=== PATIENT | male | born 1960 | race Caucasian/White ===

== ENCOUNTER 2019-05-18 11:02 | Emergency (ER) | payer BC, OTHER ==
[2019-05-18 11:19] VITALS: BP 181/109; PULSE 101; TEMP 98; BMI 24.4
[2019-05-18] MEDS ORDERED: FLUORESCEIN NA 1 EA STRIP OS ONE (11:22)
[2019-05-18] MEDS ORDERED: TETRACAINE 0.5% OPHTH SOLN 2 ML BOTTLE OS ONE (11:23)
[2019-05-18] MEDS ORDERED: FLUORESCEIN NA 1 EA STRIP ONE (11:25)
[2019-05-18] MEDS ORDERED: TETRACAINE 0.5% OPHTH SOLN 2 ML BOTTLE ONE (11:25)
[2019-05-18] MEDS ORDERED: valACYclovir HCL 1000 MG TABLET PO ONE (11:46)
[2019-05-18] MEDS ORDERED: valACYclovir HCL 500 MG TABLET (FP) ONE (11:49)
--- NOTE | 2019-05-18 11:54 | PDOC ---
History of Present Illness - General Chief Complaint: Rash Stated Complaint: RASH Time Seen by Provider: 05/18/19 11:03 History Source: Patient Exam Limitations: No Limitations - History of Present Illness Initial Comments: 05/18/19 11:47 CHIEF COMPLAINT: Rash on left forehead for several days HISTORY OF PRESENT ILLNESS: 58-year-old man presents complaining of rash on the left side of his forehead, initially small blisters, now scabbing over. Also has some pain in his left ear. No fever or chills. No sore throat. Also would like to have his glands checked for any swollen glands. REVIEW OF SYSTEMS: No fever chills No headache Positive left forehead skin rash with skin sensitivity Positive left ear pain with radiation to the left side of the face No neck stiffness No other rash Past History - Past Medical History Allergies/Adverse Reactions: Allergies Allergy/AdvReac Type Severity Reaction Status Date / Time No Known Allergies Allergy Verified 05/18/19 11:05 Home Medications: Ambulatory Orders Celecoxib [Celebrex] 0 mg PO BID 11/21/14 Diazepam [Valium] 5 mg PO DAILY PRN 11/21/14 Hydroxychloroquine So4 [Plaquenil -] 200 mg PO DAILY 11/21/14 Tramadol HCl [Ultram] 50 mg PO BID 11/21/14 Aspirin [ASA -] 81 mg PO DAILY 05/18/19 Atorvastatin Ca [Lipitor] 20 mg PO HS 05/18/19 Lansoprazole [Prevacid -] 30 mg PO DAILY 05/18/19 Levocetirizine Dihydrochloride 5 mg PO DAILY 05/18/19 Montelukast Sodium [Singulair] 10 mg PO DAILY 05/18/19 Valacyclovir HCl [Valtrex -] 1,000 mg PO TID #21 tablet 05/18/19 Cardiac Disorders: Yes CVA: Yes (Internal carotid artery dissection, word finding difficulty) COPD: No Other medical history: STROKE, CAROTID DISSECTION, rheumatoid arthritis on Plaquenil - Surgical History Appendectomy: Yes GI Surgery: Yes (Epiploic appendagitis) - Immunization History Immunization Up to Date: Yes - Psycho Social/Smoking Cessation Hx Smoking History: Never smoked Have you smoked in the past 12 months: No Information on smoking cessation initiated: No Hx Alcohol Use: No (HX) Substance Use Type: None *Physical Exam - Vital Signs Last Vital Signs Temp Pulse Resp BP Pulse Ox 98 F 101 H 20 181/109 H 98 05/18/19 11:03 05/18/19 11:03 05/18/19 11:03 05/18/19 11:03 05/18/19 11:03 - Physical Exam Comments: 05/18/19 11:50 GENERAL: The patient is awake, alert, and fully oriented, in no acute distress. HEAD: Normal with no signs of trauma. Positive facial rash on the left forehead. See skin exam. EYES: Pupils equal, round and reactive to light, extraocular movements intact, sclera anicteric, conjunctiva clear. No eye pain, conjunctiva clear, corneal examination post tetracaine and fluorescein is normal with no abnormal uptake. EARS: The left auditory canal is normal. The tympanic membrane is normal. OROPHARYNX: There is no pharyngeal swelling, multiple tooth restorations, all appear normal. THROAT: No tonsillar swelling or erythema, no trismus. NECK: No adenopathy noted, no anterior or posterior cervical nodes. EXTREMITIES: Normal range of motion, no edema. NEUROLOGICAL: Normal speech, normal gait. Occasionally he is slow to find words , but generally fluent speech. (Old stroke with speech changes) PSYCH: Normal mood, normal affect. SKIN: The T1 branch of the trigeminal nerve on the left side has typical shingles lesions with scabbing and crusting. There is no involvement of the nose in any area. ED Treatment Course - Medications Given in the ED: ED Medications Discontinued Medications Generic Name Dose Route Start Last Admin Trade Name Freq PRN Reason Stop Dose Admin Fluorescein Sodium 1 ea 05/18/19 11:22 05/18/19 11:38 Fluorets - OS 05/18/19 11:23 1 ea ONCE ONE Administration Tetracaine HCl 1 drop 05/18/19 11:23 05/18/19 11:38 Pontocaine OS 05/18/19 11:24 1 drop ONCE ONE Administration Medical Decision Making - Medical Decision Making 05/18/19 11:55 58-year-old man on Plaquenil for rheumatoid arthritis, history of carotid dissection with stroke, residual word finding difficulty at times. Patient presents now with several days of a shingles rash on the left T1 region. There is no sign of ocular involvement on examination. There is one lesion on the upper lid, but no involvement of the eye itself. He will be treated with Valtrex 1 g 3 times a day, and he will continue his home tramadol and Tylenol as needed for pain. He has been advised to follow-up with his primary care physician. He is low risk for ocular involvement given the normal eye examination, and the lack of involvement of any area of the lateral aspect of the left nose. Discharge - Discharge Information Problems reviewed: Yes Clinical Impression/Diagnosis: Shingles rash Qualifiers: Herpes zoster complications: without complications Qualified Code(s): B02.9 - Zoster without complications Condition: Good Disposition: HOME - Admission No - Additional Discharge Information Prescriptions: Valacyclovir HCl [Valtrex -] 1,000 mg PO TID #21 tablet - Follow up/Referral - Patient Discharge Instructions Patient Printed Discharge Instructions: DI for Shingles Additional Instructions: Today you were evaluated for a rash on your left forehead. The most likely diagnosis is shingles. Fortunately, there are no signs of eye involvement at this time. Take Valtrex 1 g 3 times a day for 7 days. The prescription has been sent to your pharmacy. Take Ultram or Tylenol if needed for pain. Apply bacitracin ointment to the scabbing areas to help speed healing. Follow-up with your primary care physician. If you develop any eye symptoms, see your sheriffs detective right away. Return to the emergency department for any severe or progressive symptoms. - Post Discharge Activity
== END 2019-05-18 12:04 | disposition home or self-care (01) ==
LOC: FER 11:02
DX: B02.9 Zoster without complications (principal); M06.9 Rheumatoid arthritis, unspecified; Z79.82 Long term (current) use of aspirin; Z86.73 Personal history of transient ischemic attack (TIA), and cerebral infarction without residual deficits
CPT/HCPCS: 99281-25